=== PATIENT | female | born 1945 | race Caucasian/White ===

== ENCOUNTER 2018-06-13 21:55 | Emergency (ER) | payer MEDICARE ==
[~2018-06-13] VITALS: Ht 152.4 cm; Wt 65.8 kg
[2018-06-13] MEDS ORDERED: ATOR10 PO (22:14)
[2018-06-13] MEDS ORDERED: METO50ER PO (22:14)
[2018-06-13] MEDS ORDERED: ESTR2 PO (22:15)
[2018-06-13] MEDS ORDERED: NAPR500 PO (22:15)
[2018-06-13] MEDS ORDERED: PRED5 PO (22:16)
[2018-06-13] MEDS ORDERED: PANT40 PO (22:16)
[2018-06-13] MEDS ORDERED: ASPI81CH PO (22:17)
[2018-06-13] MEDS ORDERED: MECL12.5 PO (22:17)
[2018-06-13] MEDS ORDERED: CALCA400CH PO (22:22)
[2018-06-13] MEDS ORDERED: FOLGARD TABLET1 EACH PO (22:23)
[2018-06-13] MEDS ORDERED: DOCU100 PO (22:24)
[2018-06-13] MEDS ORDERED: MELA3 PO (22:24)
== END 2018-06-13 23:18 | disposition home or self-care (01) ==
LOC: ER 21:55
DX: M71.21 Synovial cyst of popliteal space [Baker], right knee (principal); Z79.899 Other long term (current) drug therapy; Z79.52 Long term (current) use of systemic steroids; Z79.82 Long term (current) use of aspirin
CPT/HCPCS: 93005; 93010; 93971; 99284-25